=== PATIENT | male | born 1975 | race African-American/Black ===

== ENCOUNTER 2018-10-23 23:33 | Emergency (ER) | payer MEDICAID ==
[~2018-10-23] VITALS: Ht 170.2 cm; Wt 72.6 kg
[2018-10-23 23:41] VITALS: BP 132/68
[2018-10-24] MEDS ORDERED: IBUPROFEN 600 MG TABLET PO ONE ×2 (03:30→03:38)
--- NOTE | 2018-10-24 03:59 | NUR ---
Patient discharged to home in stable condition. Written and verbal after care instructions given. Patient verbalizes understanding of instruction.
--- NOTE | 2018-10-24 04:18 | NUR ---
PT PROVIDED COMMUNITY RESOURCES, GIVEN TAP CARD, PT PREFERS TO WAIT IN THE WAITING ROOM. PT LEFT IN STABLE CONDTION. ALL D/C PPW GIVEN
== END 2018-10-24 04:19 | disposition home or self-care (01) ==
LOC: ER 23:39
DX: R51 Headache (principal); F20.9 Schizophrenia, unspecified; Z59.0 Homelessness; Z90.89 Acquired absence of other organs
CPT/HCPCS: 70450; 99284; A4606

== ENCOUNTER 2018-10-24 22:44 | Emergency (ER) | payer MEDICAID ==
[~2018-10-24] VITALS: Ht 170.2 cm; Wt 74.8 kg
--- NOTE | 2018-10-24 23:25 | NUR ---
FLORENTIN CARRANZA DO AT BEDSIDE
--- NOTE | 2018-10-24 23:30 | NUR ---
BIB SELF W C/O HEADACHE SINCE JUL 2018; SEEN HERE YESTERDAY FOR SAME COMPLAINT, TO ER BED 7, HOOKED TO MONITOR, AWAITING MD SHARMA
[2018-10-25] MEDS ORDERED: IBUPROFEN 400 MG TABLET PO ONE
[2018-10-25] MEDS ORDERED: IBUPROFEN 400 MG TABLET ONE (00:03)
--- NOTE | 2018-10-25 00:11 | NUR ---
Patient given written and verbal discharge instructions. Patient verbalizes understanding of instructions. Patient is ambulatory with steady gait. Refuses offer of prison placement. Patient given list of available shelters in surrounding area. Pt given $2.00 for bus transportation. Pt wearing jacket, pants and clogs. assisted to the waiting room upon discharge.
[2018-10-25 00:16] VITALS: BP 108/73
== END 2018-10-25 00:17 | disposition home or self-care (01) ==
LOC: ER 22:44
DX: R51 Headache (principal); F20.9 Schizophrenia, unspecified; Z90.89 Acquired absence of other organs

== ENCOUNTER 2018-10-27 22:27 | Emergency (ER) | payer MEDICARE, MEDICAID ==
[~2018-10-27] VITALS: Ht 170.2 cm; Wt 72.6 kg
[2018-10-27 22:29] VITALS: BP 133/69
--- NOTE | 2018-10-27 23:31 | NUR ---
PT CALLED TO RM. NO ANSWER.
--- NOTE | 2018-10-27 23:47 | NUR ---
2nd call for pt. no answer.
--- NOTE | 2018-10-28 01:36 | NUR ---
pt on phone w/ [place] [employer] officer [place] for police report.
--- NOTE | 2018-10-28 01:55 | NUR ---
Patient discharged back to community in stable condition. [place] and juice provided. Written and verbal after care instructions given along w/ referrals for community shelters. Patient verbalizes understanding of instruction. Patient clothed decently for weather w/ all belongings returned to patient.
== END 2018-10-28 01:57 | disposition home or self-care (01) ==
LOC: ER 22:29
DX: M25.512 Pain in left shoulder (principal); F20.9 Schizophrenia, unspecified; Z90.89 Acquired absence of other organs; Z59.0 Homelessness
CPT/HCPCS: 99283; A4606

== ENCOUNTER 2018-10-29 22:37 | Emergency (ER) | payer MEDICAID, MEDICARE ==
[~2018-10-29] VITALS: Ht 172.7 cm; Wt 72.6 kg
[2018-10-29 22:40] VITALS: BP 114/57
--- NOTE | 2018-10-29 23:57 | NUR ---
PT REFUSED HOMELESS RESOURCES.
== END 2018-10-29 23:59 | disposition home or self-care (01) ==
LOC: ER 22:41
DX: S60.521A Blister (nonthermal) of right hand, initial encounter (principal); L03.011 Cellulitis of right finger; F20.9 Schizophrenia, unspecified; Z90.89 Acquired absence of other organs; Z60.2 Problems related to living alone; X58.XXXA Exposure to other specified factors, initial encounter; Y93.89 Activity, other specified; Y92.89 Other specified places as the place of occurrence of the external cause; Y99.8 Other external cause status

== ENCOUNTER 2018-11-04 05:31 | Emergency (ER) | payer MEDICARE, MEDICAID ==
[~2018-11-04] VITALS: Ht 170.2 cm; Wt 74.4 kg
[2018-11-04 06:03] VITALS: BP 108/63
--- NOTE | 2018-11-04 06:52 | NUR ---
PT REFUSED ALL RESOURCES/SERVICES OFFERED. PT STATED HE HAS HIS OWN CUSTODIAL. PT GIVEN TAP CARD FROM NURSING SUP.
== END 2018-11-04 06:55 | disposition home or self-care (01) ==
LOC: ER 05:31
DX: L98.8 Other specified disorders of the skin and subcutaneous tissue (principal); B07.8 Other viral warts; F29 Unspecified psychosis not due to a substance or known physiological condition; F20.9 Schizophrenia, unspecified; Z90.89 Acquired absence of other organs; Z60.2 Problems related to living alone; Z59.0 Homelessness
CPT/HCPCS: 99282; A4606

== ENCOUNTER 2018-11-28 02:33 | Emergency (ER) | payer MEDICARE, MEDICAID ==
[~2018-11-28] VITALS: Ht 182.9 cm; Wt 81.6 kg
[2018-11-28 02:35] VITALS: BP 137/88
[2018-11-28] MEDS ORDERED: ACETAMINOPHEN 325 MG TABLET PO ONE (04:00)
[2018-11-28] MEDS ORDERED: ACETAMINOPHEN 325 MG TABLET ONE (04:04)
--- NOTE | 2018-11-28 06:01 | NUR ---
PT GIVEN HOMELESS RESOURCES. FOOD. SOCKS. WEATHER APPROPRIATE CLOTHING. GIVEN TAP CARD FOR TRANSPORTATION. STATING "[facility]"
== END 2018-11-28 06:03 | disposition home or self-care (01) ==
LOC: ER 02:34
DX: M79.672 Pain in left foot (principal); F20.9 Schizophrenia, unspecified; Z90.89 Acquired absence of other organs; Z59.0 Homelessness
CPT/HCPCS: 73630-TC

== ENCOUNTER 2018-11-30 04:16 | Emergency (ER) | payer MEDICARE, MEDICAID ==
[~2018-11-30] VITALS: Ht 185.4 cm; Wt 81.6 kg
[2018-11-30 04:28] VITALS: BP 106/71
[2018-11-30] MEDS ORDERED: HYDROCODONE/APAP 10/325MG 1 EA TABLET ONE (04:45)
[2018-11-30] MEDS ORDERED: FLUCONAZOLE (100 MG) 100 MG TABLET ONE (04:45)
[2018-11-30] MEDS ORDERED: ONDANSETRON 4 MG TAB.RAPDIS ONE (04:46)
[2018-11-30] MEDS ORDERED: FLUCONAZOLE (100 MG) 100 MG TABLET PO ONE (05:00)
[2018-11-30] MEDS ORDERED: ONDANSETRON 4 MG TAB.RAPDIS SL ONE (05:00)
[2018-11-30] MEDS ORDERED: HYDROCODONE/APAP 10/325MG 1 EA TABLET PO ONE (05:00)
== END 2018-11-30 05:02 | disposition home or self-care (01) ==
LOC: ER 04:18
DX: M79.675 Pain in left toe(s) (principal); F20.9 Schizophrenia, unspecified; Z90.89 Acquired absence of other organs; Z59.0 Homelessness
CPT/HCPCS: 99284; Q0162

== ENCOUNTER 2018-12-17 06:29 | Emergency (ER) | payer MEDICARE, MEDICAID ==
[~2018-12-17] VITALS: Ht 170.2 cm; Wt 84.4 kg
[2018-12-17 06:38] VITALS: BP 122/61
--- NOTE | 2018-12-17 06:42 | NUR ---
DR. HIGGINBOTHAM AT BEDSIDE FOR EVAL.
--- NOTE | 2018-12-17 07:10 | NUR ---
Patient given written and verbal discharge instructions. Patient verbalizes understanding of instructions. Patient is ambulatory with steady gait. Refuses offer of [facility] placement. Patient given list of available shelters in surrounding area. PROVIDED PT WITH BANDAIDS AND SOCKS. PT LEFT WITHOUT DISCHARGE INSTRUCTIONS.
== END 2018-12-17 07:13 | disposition home or self-care (01) ==
LOC: ER 06:36
DX: B35.3 Tinea pedis (principal); F29 Unspecified psychosis not due to a substance or known physiological condition; F20.9 Schizophrenia, unspecified; Z59.0 Homelessness; Z90.89 Acquired absence of other organs

== ENCOUNTER 2018-12-20 06:10 | Emergency (ER) | payer MEDICARE, MEDICAID ==
[~2018-12-20] VITALS: Ht 170.2 cm; Wt 83.9 kg
[2018-12-20 06:20] VITALS: BP 139/76
--- NOTE | 2018-12-20 06:25 | NUR ---
DR. ORTIZ AT BEDSIDE FOR EVAL.
--- NOTE | 2018-12-20 06:36 | NUR ---
Mitch garcia in ED - 12/20/18 at 0636 by MAYO Patient discharged to home in stable condition. Written and verbal after care instructions given. Patient verbalizes understanding of instruction.
--- NOTE | 2018-12-20 06:37 | NUR ---
Patient given written and verbal discharge instructions. Patient verbalizes understanding of instructions. Patient is ambulatory with steady gait. Refuses offer of prison placement. Patient given list of available shelters in surrounding area.
== END 2018-12-20 06:39 | disposition home or self-care (01) ==
LOC: ER 06:10
DX: B35.3 Tinea pedis (principal); F20.9 Schizophrenia, unspecified; Z90.89 Acquired absence of other organs; Z59.0 Homelessness

== ENCOUNTER 2018-12-21 09:22 | Emergency (ER) | payer MEDICARE, MEDICAID ==
[~2018-12-21] VITALS: Ht 170.2 cm; Wt 81.6 kg
[2018-12-21 09:30] VITALS: BP 138/81
--- NOTE | 2018-12-21 10:26 | NUR ---
Patient given written and verbal discharge instructions. Patient verbalizes understanding of instructions. Patient is ambulatory with steady gait. Refuses offer of jail placement. Patient given list of available shelters in surrounding area.
--- NOTE | 2018-12-21 11:55 | NUR ---
Social service consult requested by discharged pt. Pt. initially visited the ER in the morning for foot laceration and has been discharged. DANAE was notified that pt. was in the ER waiting room requesting a consult at 11:20am. DANAE met with former pt. in the ER waiting room. Former pt. looked disheveled but alert to time and place. Former pt. is requesting further housing services. SW provided former pt. with the following homeless senior care referrals: [facility]. [place], [place] [address] [phone]. [address] [address] . And the [facility] Homeless Resource Directory. Former pt. dissatisfied with the referrals provided. Former pt. became agitated and non-cooperative. DANAE consulted with ER nurse, and per nurse additional homeless referrals were given to pt. prior to discharge and homeless waiver was also signed by pt. prior to discharge. SW is available if needed.
== END 2018-12-21 10:28 | disposition home or self-care (01) ==
LOC: ER 09:25
DX: S90.422A Blister (nonthermal), left great toe, initial encounter (principal); S90.421A Blister (nonthermal), right great toe, initial encounter; F20.9 Schizophrenia, unspecified; Z90.89 Acquired absence of other organs; Z59.0 Homelessness; X58.XXXA Exposure to other specified factors, initial encounter; Y93.89 Activity, other specified; Y92.89 Other specified places as the place of occurrence of the external cause; Y99.8 Other external cause status
CPT/HCPCS: Z7502

== ENCOUNTER 2018-12-27 03:32 | Emergency (ER) | payer MEDICARE, MEDICAID ==
--- NOTE | 2018-12-27 04:18 | NUR ---
PATIENT CALLED IN WR, NO ANSWER.
--- NOTE | 2018-12-27 04:47 | NUR ---
CALLED PATIENT IN WR, NO ANSWER.
--- NOTE | 2018-12-27 05:58 | NUR ---
PATIENT NOT IN WR.
== END 2018-12-27 05:58 | disposition left against medical advice (07) ==
LOC: ER 03:34
DX: Z53.21 Procedure and treatment not carried out due to patient leaving prior to being seen by health care provider (principal)

== ENCOUNTER 2018-12-28 06:46 | Emergency (ER) | payer MEDICARE, MEDICAID ==
[~2018-12-28] VITALS: Ht 172.7 cm; Wt 80.7 kg
[2018-12-28 07:06] VITALS: BP 144/78
--- NOTE | 2018-12-28 07:10 | NUR ---
AT THE BED SIDE
--- NOTE | 2018-12-28 07:12 | NUR ---
BIBS FOR C/O LEFT FOOT PAIN. A, [employer]. BREATHING EVENLY. AMBULATORY W/ STEADY GATE. VSS. WILL CONT TO MONITOR ,
--- NOTE | 2018-12-28 07:35 | NUR ---
DRESSING WAS CHANGED ON BOTH FEET.
== END 2018-12-28 08:06 | disposition home or self-care (01) ==
LOC: ER 06:46
DX: B35.3 Tinea pedis (principal); F20.9 Schizophrenia, unspecified; Z90.89 Acquired absence of other organs; Z59.0 Homelessness
CPT/HCPCS: 99283; A6402

== ENCOUNTER 2019-01-04 11:16 | Emergency (ER) | payer MEDICARE, MEDICAID ==
[~2019-01-04] VITALS: Ht 177.8 cm; Wt 72.6 kg
[2019-01-04 11:20] VITALS: BP 113/63
[2019-01-04] MEDS ORDERED: ACETAMINOPHEN ES 500 MG TABLET ONE (11:37)
[2019-01-04] MEDS ORDERED: ACETAMINOPHEN 325 MG TABLET PO ONE (12:00)
--- NOTE | 2019-01-04 12:46 | NUR ---
DANAE received a call from Pearl in ED requesting for SW to see the pt. due to homelessness. Pt. is a 43 year old male who came to ED complaining of a headache. DANAE met with pt. bedside. Pt. is alert and oriented x 4. Pt. appeared disheveled and had two plastic cans covered with trash bags bedside. Pt. states he has been homeless for the past three years. Pt. states, he was residing at [facility] in [place] and wants to go back to [facility]. Pt. sleeps on the streets. SW offered pt. long-term placement, however pt. declined. Pt. kept falling asleep during the assessment, SW had to wake him up several times. Pt. denies drug and cigarette use. Pt. did disclose he drinks alcohol now and then. Pt. smokes marijuana daily. Pt. wanted information on Independent Living and SW gave him the contact for [facility] at . Pt. has a history of Schizophrenia and is not taking any medication. DANAE gave pt. the following resources: [facility] located at [address] [facility] ; [facility] [place], [address] ; [facility] [place], [address] [facility] ; [facility] Homeless Resource Directory which includes food stamps, transitional housing, showers and hot meals etc; Mental Health clinics such as [facility] ; [facility] ; Health clinics;[facility] and Alcohol treatment centers such as [facility], ; [facility] Substance Abuse Hotline and [facility] . Pt. was provided with a TAP Card, sandwich and juice. Homeless Patient Waiver Form was signed by the pt. and placed in pt's chart. [facility] Gener was updated with pt's discharge plan. No other social service needs are requested at this time.
--- NOTE | 2019-01-04 13:33 | NUR ---
Patient given written and verbal discharge instructions. Patient verbalizes understanding of instructions. Patient is ambulatory with steady gait. Refuses offer of correction placement. Patient given list of available shelters in surrounding area.
== END 2019-01-04 13:37 | disposition home or self-care (01) ==
LOC: ER 11:16
DX: R51 Headache (principal); J06.9 Acute upper respiratory infection, unspecified; F20.9 Schizophrenia, unspecified; Z59.0 Homelessness; Z90.89 Acquired absence of other organs

== ENCOUNTER 2019-01-11 07:06 | Emergency (ER) | payer MEDICARE, MEDICAID ==
[~2019-01-11] VITALS: Ht 170.2 cm; Wt 85.3 kg
[2019-01-11] MEDS ORDERED: ACETAMINOPHEN 325 MG TABLET ONE (07:29)
[2019-01-11] MEDS ORDERED: ACETAMINOPHEN 325 MG TABLET PO ONE (07:30)
--- NOTE | 2019-01-11 07:30 | NUR ---
patient came to the ER c/o headache, per patient he is on fasting. On room air, alert and oriented x 4, verbally responsive and able to make needs known. Breathing evenly and unlabored. kept comfortable, will continue to monitor accordingly.
[2019-01-11 11:20] VITALS: BP 111/69
--- NOTE | 2019-01-11 11:21 | NUR ---
Patient discharged to home in stable condition. Written and verbal after care instructions given. Patient verbalizes understanding of instruction.
== END 2019-01-11 11:20 | disposition home or self-care (01) ==
LOC: ER 07:06
DX: R51 Headache (principal); F20.9 Schizophrenia, unspecified; Z90.89 Acquired absence of other organs; Z59.0 Homelessness

== ENCOUNTER 2019-01-12 04:39 | Emergency (ER) | payer MEDICARE, MEDICAID ==
[~2019-01-12] VITALS: Ht 170.2 cm; Wt 85.3 kg
--- NOTE | 2019-01-12 04:56 | NUR ---
CALLED FOR PT. NO RESPONSE
--- NOTE | 2019-01-12 06:30 | NUR ---
CALLED FOR PT. NO RESPONSE
[2019-01-12] MEDS ORDERED: ACETAMINOPHEN ES 500 MG TABLET PO ONE (09:00)
[2019-01-12] MEDS ORDERED: DIPHENHYDRAMINE HCL 12.5 MG/5 ML UDC PO ONE (09:00)
[2019-01-12] MEDS ORDERED: KETOROLAC TROMETHAMINE INJ 60 MG/2 ML VIAL IM ONE (09:00)
[2019-01-12] MEDS ORDERED: ACETAMINOPHEN ES 500 MG TABLET ONE (09:15)
[2019-01-12] MEDS ORDERED: diphenhydrAMINE HCL ELIX 25 MG/10 ML UDC ONE (09:15)
[2019-01-12] MEDS ORDERED: KETOROLAC TROMETHAMINE INJ 30 MG/ML VIAL ONE (09:15)
--- NOTE | 2019-01-12 09:45 | NUR ---
patient came to the ER c/o migraine headache, in no apparent distress noted. Connected to the monitor and pulse ox. kept comfortable, will continue to monitor accordingly.
[2019-01-12 10:30] VITALS: BP 102/66
--- NOTE | 2019-01-12 10:32 | NUR ---
Patient discharged to home in stable condition. Written and verbal after care instructions given. Patient verbalizes understanding of instruction.
== END 2019-01-12 10:31 | disposition home or self-care (01) ==
LOC: ER 04:39
DX: G43.909 Migraine, unspecified, not intractable, without status migrainosus (principal); F20.9 Schizophrenia, unspecified; Z90.89 Acquired absence of other organs; Z59.0 Homelessness
CPT/HCPCS: J1885; Q0163

== ENCOUNTER 2019-01-13 05:34 | Emergency (ER) | payer MEDICARE, MEDICAID ==
[~2019-01-13] VITALS: Ht 172.7 cm; Wt 80.7 kg
[2019-01-13 06:43] VITALS: BP 137/82
--- NOTE | 2019-01-13 06:46 | NUR ---
PT SEEN AND EVALUATED BY ER MD. PT COMPLAINING OF BILATERAL FOOT PAIN AND REQUESTING SHOES. INFORMED PT WE DO NOT HAVE ANY SHOES AVAILABLE BUT PROVIDED PT WITH SOCKS. OFFERED BY RESOURCES, PT REFUSED. PT MEDICALLY CLEARED FOR DISCHARGE.
== END 2019-01-13 06:48 | disposition home or self-care (01) ==
LOC: ER 05:36
DX: B35.3 Tinea pedis (principal); F20.9 Schizophrenia, unspecified; Z90.89 Acquired absence of other organs; Z59.0 Homelessness

== ENCOUNTER 2019-01-16 04:50 | Emergency (ER) | payer MEDICARE, MEDICAID ==
[~2019-01-16] VITALS: Ht 170.2 cm; Wt 77.1 kg
[2019-01-16 04:59] VITALS: BP 135/82
[2019-01-16] MEDS ORDERED: ACETAMINOPHEN 325 MG TABLET ONE (05:21)
[2019-01-16] MEDS ORDERED: ACETAMINOPHEN 325 MG TABLET PO ONE (05:30)
--- NOTE | 2019-01-16 05:38 | NUR ---
Patient discharged to home in stable condition. Written and verbal after care instructions given. Patient verbalizes understanding of instruction. Pt ambulatory with a steady gait. Pt to ER waiting room for Social Service in AM
== END 2019-01-16 05:39 | disposition home or self-care (01) ==
LOC: ER 04:54
DX: F20.9 Schizophrenia, unspecified (principal); B35.3 Tinea pedis; R51 Headache; Z76.5 Malingerer [conscious simulation]; Z90.89 Acquired absence of other organs; Z59.0 Homelessness

== ENCOUNTER 2019-01-18 03:30 | Emergency (ER) | payer MEDICARE, MEDICAID ==
[~2019-01-18] VITALS: Ht 170.2 cm; Wt 77.1 kg
[2019-01-18] MEDS ORDERED: ACETAMINOPHEN ES 500 MG TABLET ONE (03:57)
--- NOTE | 2019-01-18 04:00 | NUR ---
PRESENTED TO THE ER W/ C/O H/A AND DIZZINESS, VSS. PLACED ON A MONITOR. WILL CONT TO MONITOR,
--- NOTE | 2019-01-18 04:13 | NUR ---
left for CT
[2019-01-18] MEDS: ACETAMINOPHEN ES 500 MG TABLET PO ONE (04:29)
--- NOTE | 2019-01-18 04:38 | NUR ---
Patient is resting comfortably in bed with eyes closed. Easily aroused. VSS
--- NOTE | 2019-01-18 05:08 | NUR ---
Mitch garcia in ED - 01/18/19 at 0510 by RAMA Patient discharged to home in stable condition. Written and verbal after care instructions given. Patient verbalizes understanding of instruction. Pt ambulatory with a steady gait
[2019-01-18 05:10] VITALS: BP 124/89
--- NOTE | 2019-01-18 05:10 | NUR ---
Patient given written and verbal discharge instructions. Patient verbalizes understanding of instructions. Patient is ambulatory with steady gait. Refuses offer of care home placement. Patient given list of available shelters in surrounding area.
== END 2019-01-18 05:15 | disposition home or self-care (01) ==
LOC: ER 03:31
DX: S00.83XA Contusion of other part of head, initial encounter (principal); R51 Headache; F20.9 Schizophrenia, unspecified; Z90.89 Acquired absence of other organs; Z59.0 Homelessness; W22.8XXA Striking against or struck by other objects, initial encounter; Y93.89 Activity, other specified; Y92.89 Other specified places as the place of occurrence of the external cause; Y99.8 Other external cause status
CPT/HCPCS: 70450-TC

== ENCOUNTER 2019-01-19 04:16 | Emergency (ER) | payer MEDICARE, MEDICAID ==
[~2019-01-19] VITALS: Ht 170.2 cm; Wt 77.1 kg
--- NOTE | 2019-01-19 05:05 | NUR ---
CALLED PT TO BE TRIAGED, NO ANSWER
--- NOTE | 2019-01-19 05:16 | NUR ---
PT SLEEPING IN WAITING ROOM. CALLED PT TO BE TRIAGED, REFUSED TO WAKE UP.
[2019-01-19 06:26] VITALS: BP 124/89
== END 2019-01-19 06:29 | disposition home or self-care (01) ==
LOC: ER 04:20
DX: R51 Headache (principal); F20.9 Schizophrenia, unspecified; Z90.89 Acquired absence of other organs; Z59.0 Homelessness
CPT/HCPCS: Z7502